=== PATIENT | female | born 1975 | race Caucasian/White ===

== ENCOUNTER 2017-03-23 02:43 | Emergency (ER) | payer OTHER ==
--- NOTE | 2017-03-23 03:55 | PDOC ---
History of Present Illness - General Chief Complaint: Constipation Stated Complaint: ABD PAIN Time Seen by Provider: 03/23/17 03:55 - History of Present Illness Initial Comments: 03/23/17 06:21 Patient is a 41-year-old female with past medical history of partial small bowel obstruction, colecystectomy, and 2 C-sections who presents to the emergency department today complaining of left lower quadrant pain. Patient states that her pain started yesterday and is crampy in nature. Patient states she has not had a bowel movement since Tuesday. Admits to gas, constipation, abdominal pain. Denies nausea, vomiting, diarrhea, frequency, urgency, hematuria , chest pain, shortness of breath. Last menstrual period was February 10 approximately. Past History - Travel Traveled outside of the country in the last 30 days: No Close contact w/someone who was outside of country & ill: No - Past Medical History Allergies/Adverse Reactions: Allergies Allergy/AdvReac Type Severity Reaction Status Date / Time No Known Allergies Allergy Verified 03/23/17 03:35 Home Medications: Ambulatory Orders Polyethylene Glycol 3350 [Miralax 119 gm Btl -] 17 gm PO DAILY #1 bottle GI Disorders: Yes (gastritis) - Immunization History Immunization Up to Date: Yes - Psycho/Social/Smoking Cessation Hx Anxiety: No Suicidal Ideation: No Smoking Status: No Smoking History: Never smoked Have you smoked in the past 12 months: No Number of Cigarettes Smoked Daily: 0 Information on smoking cessation initiated: No Hx Alcohol Use: No Drug/Substance Use Hx: No Substance Use Type: None Hx Substance Use Treatment: No Review of Systems - Review of Systems Able to Perform ROS?: Yes Comments:: 03/23/17 06:24 CONSTITUTIONAL: Absent: fever, chills, diaphoresis, generalized weakness, malaise, loss of appetite HEENT: Absent: rhinorrhea, nasal congestion, throat pain, throat swelling, difficulty swallowing, mouth swelling, ear pain, eye pain, visual Changes CARDIOVASCULAR: Absent: chest pain, loss of consciousness, palpitations, irregular heart rate, peripheral edema RESPIRATORY: Absent: cough, shortness of breath, dyspnea with exertion, orthopnea, wheezing, stridor, hemoptysis GASTROINTESTINAL: Positive: abdominal pain, constipation. Absent: abdominal distension, nausea, vomiting, diarrhea, melena, hematochezia GENITOURINARY: Absent: dysuria, frequency, urgency, hesitancy, hematuria, flank pain, genital pain MUSCULOSKELETAL: Absent: myalgia, arthralgia, joint swelling SKIN: Absent: rash, itching, pallor HEMATOLOGIC/IMMUNOLOGIC: Absent: easy bleeding, easy bruising, lymphadenopathy, frequent infections ENDOCRINE: Absent: unexplained weight gain, unexplained weight loss, heat intolerance, cold intolerance NEUROLOGIC: Absent: headache, focal weakness or paresthesias, dizziness, unsteady gait, seizure, mental status changes, bladder or bowel incontinence PSYCHIATRIC: Absent: anxiety, depression, suicidal or homicidal ideation, hallucinations. *Physical Exam - Vital Signs Last Vital Signs Temp Pulse Resp BP Pulse Ox 97.5 F L 75 14 126/77 100 03/23/17 03:35 03/23/17 03:35 03/23/17 03:35 03/23/17 03:35 03/23/17 03:35 - Physical Exam Comments: 03/23/17 06:24 GENERAL: Well developed, well nourished. AAOx3. No acute distress. HEENT: Normocephalic, atraumatic. PERRLA, EOMI. No conjunctival pallor. Sclera are non- icteric. Moist mucous membranes. Oropharynx is clear. NECK: Supple. Full ROM. No JVD. Carotid pulses 2+ and symmetric, without bruits. No thyromegaly. No lymphadenopathy. CARDIOVASCULAR: Regular rate and rhythm. No murmurs, rubs, or gallops. Distal pulses are 2+ and symmetric. PULMONARY: No evidence of respiratory distress. Lungs clear to auscultation bilaterally. No wheezing, rales or rhonchi. ABDOMINAL: TTP of LLQ, light and deep palpation. Soft. Non-distended. No rebound or guarding. No organomegaly. Normoactive bowel sounds. MUSCULOSKELETAL Normal range of motion at all joints. No bony deformities or tenderness. No CVA tenderness. EXTREMITIES: No cyanosis. No clubbing. No edema. No calf tenderness. SKIN: Warm and dry. Normal capillary refill. No rashes. No jaundice. NEUROLOGICAL: Alert, awake, appropriate. Cranial nerves 2-12 intact. No deficits to light touch and temperature in face, upper extremities and lower extremities. No motor deficits in the in face, upper extremities and lower extremities. Normoreflexic in the upper and lower extremities. Normal speech. Toes are down- going bilaterally. Gait is normal without ataxia. PSYCHIATRIC: Cooperative. Good eye contact. Appropriate mood and affect. ED Treatment Course - LABORATORY CBC & Chemistry Diagram: 03/23/17 04:40 03/23/17 04:40 Medical Decision Making - Medical Decision Making 03/23/17 04:26 Patient is a 41-year-old female with past medical history of partial small bowel obstruction, Edita cystectomy, and 2 C-sections who presents to the emergency department today complaining of left lower quadrant pain. Possible diagnoses include constipation, SBO, , UTI. 1. CBC, CMP, Lipase, PT/INR, UA, UC 2. EKG 3. Tylenol 4. Re-evaluate 03/23/17 06:29 Pt. is not . UA is negative. WBC WNL. Will order CT abdomen and pelvis at this time. EKG: Rate 63, NSR, Normal intervals, normal axis. no acute st-t wave elvations. 03/23/17 06:56 Sign out given to Ghislaine Arias PA-C *DC/Admit/Observation/Transfer Diagnosis at time of Disposition: Abdominal pain Qualifiers: Abdominal location: generalized Qualified Code(s): R10.84 - Generalized abdominal pain Constipation Qualifiers: Constipation type: unspecified constipation type Qualified Code(s): K59.00 - Constipation, unspecified - Discharge Dispostion Disposition: HOME Condition at time of disposition: Improved - Prescriptions Prescriptions: Polyethylene Glycol 3350 [Miralax 119 gm Btl -] 17 gm PO DAILY #1 bottle - Patient Instructions Printed Discharge Instructions: Constipation Additional Instructions: Your CT scan reveals mild constipation. Take miralax as prescribed. Please follow up with your PMD Print Language: EAST [place]
[2017-03-23 04:04] VITALS: BMI 22.9
[2017-03-23] MEDS ORDERED: ACETAMINOPHEN 325 MG TABLET (FP) PO ONE (04:11)
[2017-03-23] MEDS ORDERED: ACETAMINOPHEN 325 MG TABLET (FP) ONE (04:16)
[2017-03-23 04:45] LABS: BASOPHIL 0.8 % (0-2.0); EOSINOPHIL 3.9 % (0-4.5); MCH 28.9 pg (25.7-33.7); MEAN PLT VOLUME 8.6 fl (7.5-11.1); NEUTROPHILS 58.3 % (42.8-82.8); PLATELET COUNT 251 K/MM3 (134-434); RDW 13.2 % (11.6-15.6); WHITE BLOOD COUNT 7.8 K/mm3 (4.0-10.0)
[2017-03-23 04:48] LABS: URINE APPEARANCE CLEAR; URINE BILIRUBIN NEGATIVE (NEGATIVE); URINE BLOOD 1+ (NEGATIVE); URINE COLOR COLORLESS; URINE GLUCOSE (UA) NEGATIVE (NEGATIVE); URINE KETONE NEGATIVE (NEGATIVE); URINE LEUK ESTERASE TRACE (NEGATIVE); URINE NITRITE NEGATIVE (NEGATIVE); URINE PROTEIN NEGATIVE (NEGATIVE); URINE UROBILINOGEN NEGATIVE mg/dL (0.2-1.0)
[2017-03-23 04:58] LABS: INR 1.02 (0.82-1.09); PROTHROMBIN TIME (PATIENT) 11.2 SEC (9.98-11.88)
[2017-03-23 04:59] LABS: URINE BACTERIA RARE /hpf (NONE SEEN); URINE RBC 1 /hpf (0-3); URINE WBC 1 /hpf (3-5)
[2017-03-23 05:09] LABS: ALBUMIN 3.5 g/dl (3.4-5.0); ALK PHOS 75 U/L (45-117); ANION GAP 9 (8-16); BILIRUBIN,TOTAL 0.4 mg/dL (0.2-1.0); CALCIUM 8.6 mg/dL (8.5-10.1); CO2 26 mmol/L (21-32); CREATININE 0.5 mg/dL (0.55-1.02); GLUCOSE,RANDOM 87 mg/dL (74-106); SGOT/AST 19 U/L (15-37); SGPT/ALT 26 U/L (12-78); TOT PROT 6.9 g/dl (6.4-8.2)
--- NOTE | 2017-03-23 07:29 | PDOC ---
*Physical Exam - Vital Signs Last Vital Signs Temp Pulse Resp BP Pulse Ox 97.8 F 60 17 119/77 99 03/23/17 06:39 03/23/17 06:39 03/23/17 06:39 03/23/17 06:39 03/23/17 06:39 - Physical Exam General Appearance: Yes: Appropriately Dressed. No: Apparent Distress HEENT: positive: Normal Voice Neck: positive: Supple Respiratory/Chest: negative: Respiratory Distress Gastrointestinal/Abdominal: positive: Soft Musculoskeletal: negative: CVA Tenderness Integumentary: positive: Dry, Warm Neurologic: positive: Fully Oriented, Alert, Normal Mood/Affect ED Treatment Course - LABORATORY CBC & Chemistry Diagram: 03/23/17 04:40 03/23/17 04:40 - ADDITIONAL ORDERS Additional order review: Laboratory Results 03/23/17 03/23/17 03/23/17 04:40 04:40 04:40 INR Sodium 139 Potassium 4.0 Chloride 104 Carbon Dioxide 26 Anion Gap 9 BUN 9 D Creatinine 0.5 L Creat Clearance w eGFR > 60 Random Glucose 87 Calcium 8.6 Total Bilirubin 0.4 D AST 19 D ALT 26 D Alkaline Phosphatase 75 Total Protein 6.9 Albumin 3.5 Lipase 129 Urine Color Colorless Urine Appearance Clear Urine pH 5.0 Urine Protein Negative Urine Glucose (UA) Negative Urine Ketones Negative Urine Blood 1+ H Urine Nitrite Negative Urine Bilirubin Negative Urine Urobilinogen Negative Ur Leukocyte Esterase Trace Urine RBC 1 Urine WBC 1 Ur Epithelial Cells Rare Urine Bacteria Rare Urine HCG, Qual Negative 03/23/17 04:40 INR 1.02 Sodium Potassium Chloride Carbon Dioxide Anion Gap BUN Creatinine Creat Clearance w eGFR Random Glucose Calcium Total Bilirubin AST ALT Alkaline Phosphatase Total Protein Albumin Lipase Urine Color Urine Appearance Urine pH Urine Protein Urine Glucose (UA) Urine Ketones Urine Blood Urine Nitrite Urine Bilirubin Urine Urobilinogen Ur Leukocyte Esterase Urine RBC Urine WBC Ur Epithelial Cells Urine Bacteria Urine HCG, Qual 03/23/17 04:40 RBC 4.34 MCV 85.0 MCHC 34.0 RDW 13.2 MPV 8.6 Neutrophils % 58.3 Lymphocytes % 26.3 Monocytes % 10.7 H Eosinophils % 3.9 D Basophils % 0.8 - Medications Given in the ED: ED Medications Discontinued Medications Generic Name Dose Route Start Last Admin Trade Name Freq PRN Reason Stop Dose Admin Acetaminophen 650 mg 03/23/17 04:11 03/23/17 04:18 Tylenol - PO 03/23/17 04:12 650 mg ONCE ONE Administration Medical Decision Making - Medical Decision Making 03/23/17 07:29 41-year-old female, history of cholecystectomy, 2 C-sections, partial small bowel obstruction, here with abdominal pain. Labs unremarkable. CT pending 03/23/17 07:56 03/23/17 11:[address], otherwise no acute pathology. On reassessment, pt reports not having a bowel movement in 2 days. No rectal pain or pressure. Will send rx for miralax to pharmacy *DC/Admit/Observation/Transfer Diagnosis at time of Disposition: Abdominal pain Qualifiers: Abdominal location: generalized Qualified Code(s): R10.84 - Generalized abdominal pain Constipation Qualifiers: Constipation type: unspecified constipation type Qualified Code(s): K59.00 - Constipation, unspecified - Discharge Dispostion Disposition: HOME Condition at time of disposition: Improved - Prescriptions Prescriptions: Polyethylene Glycol 3350 [Miralax 119 gm Btl -] 17 gm PO DAILY #1 bottle - Patient Instructions Printed Discharge Instructions: Constipation Additional Instructions: Your CT scan reveals mild constipation. Take miralax as prescribed. Please follow up with your PMD Print Language: SWEDISH
[2017-03-23 10:28] VITALS: BP 110/75; PULSE 80; TEMP 98.2
--- NOTE | 2017-03-23 12:46 | EKG ---
Test Reason : Blood Pressure : / mmHG Vent. Rate : 063 BPM Atrial Rate : 063 BPM P-R Int : 124 ms QRS Dur : 094 ms QT Int : 412 ms P-R-T Axes : 068 065 040 degrees QTc Int : 421 ms NORMAL SINUS RHYTHM NORMAL ECG NO PREVIOUS ECGS AVAILABLE Confirmed by PAYTON NAYLOR, SENAIT ([id number]) on 03/23/2017 12:46:13 PM Referred By: Confirmed By:SENAIT CAIN MD
== END 2017-03-23 12:01 | disposition home or self-care (01) ==
LOC: JER 02:43
DX: R10.84 Generalized abdominal pain (principal); K59.00 Constipation, unspecified
CPT/HCPCS: 36415; 74177-TC; 80053; 81003; 81015; 83690; 84703; 85025; 85610; 87086; 93005; 93010; 99282-25

== ENCOUNTER 2017-09-28 03:35 | Emergency (ER) | payer OTHER ==
[2017-09-28] MEDS ORDERED: SODIUM PHOSPHATE/NA BIPHOS 133 ML ENEMA PR ONE (04:09)
--- NOTE | 2017-09-28 04:13 | PDOC ---
History of Present Illness - General Chief Complaint: Pain, Acute Stated Complaint: LLQ PAIN Time Seen by Provider: 09/28/17 04:01 History Source: Patient - History of Present Illness Initial Comments: 09/28/17 04:10 42 year old female with 2 weeks of constipation passing small amount of hard stool. patient today /o left side abdominal pain, and left flank pain. denies urinary symptoms. Past History - Past Medical History Allergies/Adverse Reactions: Allergies Allergy/AdvReac Type Severity Reaction Status Date / Time No Known Allergies Allergy Verified 03/23/17 03:35 Home Medications: Ambulatory Orders Cephalexin Monohydrate [Keflex -] 500 mg PO BID #20 capsule 09/28/17 Polyethylene Glycol 3350 [Miralax 119 gm Btl -] 17 gm PO DAILY #1 bottle COPD: No GI Disorders: Yes (gastritis) - Surgical History Cholecystectomy: Yes - Immunization History Immunization Up to Date: Yes - Suicide/Smoking/Psychosocial Hx Smoking Status: No Smoking History: Never smoked Have you smoked in the past 12 months: No Number of Cigarettes Smoked Daily: 0 Hx Alcohol Use: No Drug/Substance Use Hx: No Substance Use Type: None Hx Substance Use Treatment: No Review of Systems - Review of Systems Able to Perform ROS?: Yes Is the patient limited Nepali proficient: No Constitutional: No: Symptoms Reported, See HPI, Chills, Diaphoresis, Fever, Loss of Appetite, Malaise, Night Sweats, Weakness, Weight Stable, Unintentional Wgt. Loss, Unexplained wgt Loss, Other ABD/GI: Yes: Constipated, Abdominal cramping (Left side) : No: Symptoms Reported, See HPI, Burning, Dysuria, Discharge, Frequency, Flank Pain, Hematuria, Incontinence, Pain, Urgency, Testicular Mass, Testicular Swelling, Lesions, Testicular Pain, Other *Physical Exam - Vital Signs Last Vital Signs Temp Pulse Resp BP Pulse Ox 97.8 F 92 H 20 132/68 99 09/28/17 04:00 09/28/17 04:00 09/28/17 04:00 09/28/17 04:00 09/28/17 04:00 - Physical Exam General Appearance: Yes: Appropriately Dressed Respiratory/Chest: positive: Lungs Clear, Normal Breath Sounds Gastrointestinal/Abdominal: positive: Normal Bowel Sounds, Tender (LLQ/ LUQ) Musculoskeletal: positive: CVA Tenderness (L). negative: Normal Inspection, CVA Tenderness, CVA Tenderness (R), Decreased Range of Motion, Muscle Spasm, Vertebral Tenderness, Other Extremity: positive: Normal Capillary Refill, Normal Inspection, Normal Range of Motion Integumentary: positive: Normal Color, Dry Neurologic: positive: Fully Oriented, Alert Progress Note - Progress Note Progress Note: A: constipation; UTI P: fleet enema ua ucx Medical Decision Making - Medical Decision Making 09/28/17 05:25 patient + bowel movement. now feels better. UA: + 1 leuks. will empirically treat. *DC/Admit/Observation/Transfer Diagnosis at time of Disposition: Constipation Qualifiers: Constipation type: unspecified constipation type Qualified Code(s): K59.00 - Constipation, unspecified UTI (urinary tract infection) Qualifiers: Urinary tract infection type: acute cystitis Hematuria presence: without hematuria Qualified Code(s): N30.00 - Acute cystitis without hematuria - Discharge Dispostion Disposition: HOME - Prescriptions Prescriptions: Cephalexin Monohydrate [Keflex -] 500 mg PO BID #20 capsule Polyethylene Glycol 3350 [Miralax 119 gm Btl -] 17 gm PO DAILY #1 bottle - Referrals - Patient Instructions Printed Discharge Instructions: Constipation, Urinary Tract Infection Additional Instructions: drink plenty of fluids. take miralax as prescribed. take cephalexin as prescribed. follow up with your doctor as soon as possible. return to the ER if symptoms worsen. - Post Discharge Activity Forms/Work/School Notes: Back to Work
[2017-09-28 04:17] VITALS: BP 132/68; PULSE 92; TEMP 97.8; BMI 23.3
[2017-09-28 04:21] LABS: URINE APPEARANCE CLEAR; URINE BILIRUBIN NEGATIVE (NEGATIVE); URINE BLOOD 1+ (NEGATIVE); URINE COLOR LTYELLOW; URINE GLUCOSE (UA) NEGATIVE (NEGATIVE); URINE KETONE NEGATIVE (NEGATIVE); URINE LEUK ESTERASE 1+ (NEGATIVE); URINE NITRITE NEGATIVE (NEGATIVE); URINE PROTEIN NEGATIVE (NEGATIVE); URINE UROBILINOGEN NEGATIVE mg/dL (0.2-1.0)
[2017-09-28 04:23] LABS: EPI CELLS RARE /HPF (FEW); URINE BACTERIA RARE /hpf (NONE SEEN); URINE MUCUS RARE
== END 2017-09-28 05:35 | disposition home or self-care (01) ==
LOC: JER 03:35
DX: N30.00 Acute cystitis without hematuria (principal); K59.00 Constipation, unspecified
CPT/HCPCS: 81003; 81015; 84703; 87086; 99282-25